=== PATIENT | female | born 1990 | race Two or more races ===

== ENCOUNTER 2018-05-19 15:46 | Emergency (ER) | payer OTHER ==
[~2018-05-19] VITALS: Ht 152.4 cm; Wt 89.8 kg
[~2018-05-19 15:46] MED LIST: FOLIC ACID1 MG PO; [UNRECOGNIZED DRUG - REMARK]
== END 2018-05-19 21:32 | disposition home or self-care (01) ==
LOC: ER 15:46
DX: O26.891 Other specified pregnancy related conditions, first trimester (principal); R10.2 Pelvic and perineal pain; Z34.01 Encounter for supervision of normal first pregnancy, first trimester

== ENCOUNTER 2018-05-29 14:12 | Emergency (ER) | payer OTHER ==
[~2018-05-29] VITALS: Ht 152.4 cm; Wt 85.7 kg
== END 2018-05-29 16:49 | disposition home or self-care (01) ==
LOC: ER 14:12
DX: O20.0 Threatened abortion (principal); Z34.01 Encounter for supervision of normal first pregnancy, first trimester